=== PATIENT | female | born 1955 | race Caucasian/White ===

== ENCOUNTER 2020-08-05 13:48 | Observation (INO) | payer BC ==
[2020-08-05 15:22] LABS: #Eosinphils 0.1 10x3/uL (0.0-0.5); #Monocytes 0.5 10x3/uL (0.0-1.1); #Neutrophils 5.9 10x3/uL (1.5-8.4); %Basophils 0.2 % (0.0-2.0); %Eosinophils 1.3 % (0.0-6.0); %Lymphocytes 21.1 % (18.0-47.0); %Monocytes 5.9 % (0.0-10.0); Hemoglobin 9.7 g/dL (12.0-15.5); Mean Corpuscular HGB CONC 30.4 g/dL (32.0-36.0); Mean Corpuscular Hemoglobin 24.7 pg (27.0-33.0); Mean Corpuscular Volume 81.2 fl (81.6-98.3); Mean Platelet Volume 10.4 fl (7.4-10.4); Platelet Count 519 10x3/uL (150-450); RBC Distribution Width 17.6 % (11.5-14.5); Red Blood Cell (RBC) Count 3.93 10x6/uL (3.90-5.03); White Blood Cell (WBC) Count 8.4 10x3/uL (3.5-10.5)
[2020-08-05 15:26] LABS: ALT (SGPT) 13 U/L (8-55); AST (SGOT) 15 U/L (5-34); Albumin 4.4 g/dL (3.4-4.8); Alkaline Phosphatase 64 U/L (40-110); Anion Gap 16 mmol/L (10-20); BUN (Urea Nitrogen) 28 mg/dL (9.8-20.1); Bilirubin, Total 0.1 mg/dL (0.2-1.2); Calc. Creatinine Clearance 0 mL/min (70-130); Calcium 10.1 mg/dL (7.8-10.44); Carbon Dioxide 19 mmol/L (23-31); Chloride 108 mmol/L (98-107); Glucose 83 mg/dL (80-115); Potassium 4.8 mmol/L (3.5-5.1); Protein, Total 7.4 g/dL (5.8-8.1); Sodium 138 mmol/L (136-145)
[2020-08-05] MEDS ORDERED: Aspirin Chewable 81 MG TAB ONE (16:20)
[2020-08-05] MEDS ORDERED: Acetaminophen 325 MG TAB PO PRN (16:26)
[2020-08-05] MEDS ORDERED: Ondansetron PF 4 MG/2 ML Vial IVP PRN (16:26)
[2020-08-05] MEDS ORDERED: Sodium Chloride 0.9% 1,000 ML IV SCH (16:30)
[2020-08-05] MEDS ORDERED: HYDROcodone/Acetaminophen 10/325 mg Tablet PO PRN (16:43)
[2020-08-05] MEDS ORDERED: Dextrose 5% in Water 1,000 ML IV PRN (16:47)
[2020-08-05] MEDS ORDERED: Dextrose 50% Abboject 50 ML SYRINGE SLOW IVP PRN (16:47)
[2020-08-05] MEDS ORDERED: HumaLOG 300 UNITS/3 ML VIAL SC PRN (16:47)
[2020-08-05 18:08] LABS: Troponin I Less than 0.010 ng/mL (< 0.028)
[2020-08-05 19:50] VITALS: BMI 24.7
[2020-08-05] MEDS: Famotidine 20 MG TAB PO SCH (20:08)
[2020-08-05] MEDS: clonazePAM 0.5 MG TAB PO SCH (20:08)
[2020-08-05] MEDS: Simethicone Chewable 80 MG TAB PO SCH (20:08)
[2020-08-05] MEDS: Rosuvastatin 20 MG TAB PO SCH (20:08)
[2020-08-05] MEDS: lamoTRIgine 100 MG TAB PO SCH (20:10)
[2020-08-05 21:03] LABS: Troponin I Less than 0.010 ng/mL (< 0.028)
[2020-08-05 23:40] LABS: Troponin I Less than 0.010 ng/mL (< 0.028)
[2020-08-06] MEDS ORDERED: Sodium Chloride 0.9% 500 ML IV SCH (05:30)
[2020-08-06 06:00] LABS: #Eosinphils 0.2 10x3/uL (0.0-0.5); #Monocytes 0.6 10x3/uL (0.0-1.1); #Neutrophils 3.4 10x3/uL (1.5-8.4); %Basophils 0.3 % (0.0-2.0); %Eosinophils 2.9 % (0.0-6.0); %Lymphocytes 32.2 % (18.0-47.0); %Monocytes 9.3 % (0.0-10.0); %Neutrophils 54.8 % (40.0-75.0); Hemoglobin 8.9 g/dL (12.0-15.5); Mean Corpuscular HGB CONC 30.4 g/dL (32.0-36.0); Mean Corpuscular Hemoglobin 24.7 pg (27.0-33.0); Mean Corpuscular Volume 81.2 fl (81.6-98.3); Mean Platelet Volume 10.6 fl (7.4-10.4); Platelet Count 462 10x3/uL (150-450); RBC Distribution Width 17.5 % (11.5-14.5); Red Blood Cell (RBC) Count 3.61 10x6/uL (3.90-5.03); White Blood Cell (WBC) Count 6.2 10x3/uL (3.5-10.5)
[2020-08-06 06:16] LABS: ALT (SGPT) 12 U/L (8-55); AST (SGOT) 13 U/L (5-34); Albumin 3.9 g/dL (3.4-4.8); Alkaline Phosphatase 58 U/L (40-110); Anion Gap 14 mmol/L (10-20); BUN (Urea Nitrogen) 27 mg/dL (9.8-20.1); Bilirubin, Total 0.1 mg/dL (0.2-1.2); Calc. Creatinine Clearance 66 mL/min (70-130); Calcium 9.1 mg/dL (7.8-10.44); Carbon Dioxide 21 mmol/L (23-31); Cardiac Risk 2.1 (Less than 4.5); Chloride 107 mmol/L (98-107); Cholesterol 134 mg/dl (< 200 Desired); Globulin 2.6 g/dL (2.4-3.5); Glucose 89 mg/dL (80-115); HDL Cholesterol 64 mg/dL (>60 Neg Risk); LDL Cholesterol, Calculated 55 mg/dL; Potassium 4.6 mmol/L (3.5-5.1); Protein, Total 6.5 g/dL (5.8-8.1); Sodium 137 mmol/L (136-145); Triglycerides 76 mg/dL (Less than 150)
[2020-08-06] MEDS: Aspirin Chewable 81 MG TAB PO SCH (08:21)
[2020-08-06] MEDS: clonazePAM 0.5 MG TAB PO SCH ×2 (08:21→21:42)
[2020-08-06] MEDS: Simethicone Chewable 80 MG TAB PO SCH ×4 (08:21→21:43)
[2020-08-06] MEDS: Famotidine 20 MG TAB PO SCH ×2 (08:21→21:42)
[2020-08-06] MEDS: metFORMIN 500 MG TAB PO SCH ×2 (08:21→17:29)
[2020-08-06] MEDS: Multivit, Therapeutic 1 TAB PO SCH (08:21)
[2020-08-06] MEDS: Enoxaparin Sodium 40 MG/0.4 ML SYRINGE SC SCH (08:22)
[2020-08-06] MEDS ORDERED: Sodium Chloride 0.9% 1,000 ML IV SCH (08:30)
[2020-08-06 10:55] LABS: SARS-CoV-2 PCR by NAA Not Detected (NotDetected)
[2020-08-06 11:30] LABS: Hemoglobin A1c 5.2 % (4.0-6.0)
[2020-08-06] MEDS ORDERED: DULoxetine 30 MG CAP PO SCH (21:15)
[2020-08-06] MEDS ORDERED: Topiramate 25 MG TAB PO SCH (21:15)
[2020-08-06] MEDS: Rosuvastatin 20 MG TAB PO SCH (21:43)
[2020-08-06] MEDS: lamoTRIgine 100 MG TAB PO SCH (22:19)
[2020-08-07] MEDS: Aspirin Chewable 81 MG TAB PO SCH (08:14)
[2020-08-07] MEDS: Famotidine 20 MG TAB PO SCH (08:14)
[2020-08-07] MEDS: metFORMIN 500 MG TAB PO SCH ×2 (08:14→17:47)
[2020-08-07] MEDS: Simethicone Chewable 80 MG TAB PO SCH ×3 (08:14→17:47)
[2020-08-07] MEDS: Multivit, Therapeutic 1 TAB PO SCH (08:15)
[2020-08-07] MEDS: clonazePAM 0.5 MG TAB PO SCH (08:15)
[2020-08-07] MEDS: Enoxaparin Sodium 40 MG/0.4 ML SYRINGE SC SCH (08:16)
[2020-08-07 17:11] VITALS: BP 99/68; TEMP 98.6
[2020-08-07] MEDS ORDERED: DULoxetine 30 MG CAP PO SCH (21:00)
== END 2020-08-07 18:00 | disposition home or self-care (01) ==
LOC: CSHERS 13:48 → CSHTELE 16:09 → INTOOBSV 18:03 → UNDOADMOB 18:03
PROVIDERS: ADMIT Internal Medicine; ATTEND Internal Medicine
DX: R07.9 Chest pain, unspecified (principal); I10 Essential (primary) hypertension; E78.5 Hyperlipidemia, unspecified; E11.9 Type 2 diabetes mellitus without complications; F41.8 Other specified anxiety disorders; G89.29 Other chronic pain; Z79.899 Other long term (current) drug therapy; Z79.84 Long term (current) use of oral hypoglycemic drugs; Z20.822 Contact with and (suspected) exposure to COVID-19
CPT/HCPCS: 36415; 36416; 71045; 80053; 80061; 83036; 84484; 85025; 87635; 93005; 93010; 93306; 96372; 96374; G0378; J1650; J2405; J7030; J7050; U0003; U0005